=== PATIENT | male | born 1985 | race Caucasian/White ===

== ENCOUNTER 2021-05-15 08:19 | Emergency (ER) | payer OTHER ==
[~2021-05-15] VITALS: Ht 172.7 cm; Wt 100.7 kg
[~2021-05-15 08:19] MED LIST: ENTOCORT EC3 M1 PO; FLUCONAZOLE100 MG PO; PREDNISONE20 MG PO; TRAMADOL HCL200 MG PO; XANAX0.25 MG PO; Z.0.ACIPHEX20 MG PO; Z.0.FLAGYL500 MG PO; Z.0.LEVAQUIN500 MG PO; Z.0.LEXAPRO20 MG PO; Z.0.PENTASA500 MG PO; Z.0.REGLAN5 MG PO
[2021-05-15] MEDS ORDERED: SODIUM CHLORIDE 0.9% 1000ML 1,000 ML IV STA (08:25)
[2021-05-15] MEDS ORDERED: ONDANSETRON HCL INJ 2MG/ML 2ML 2 MG/ML VIAL IV STA (08:25)
[2021-05-15] MEDS ORDERED: SODIUM CHLORIDE 0.9% 1000ML 1,000 ML ONE (08:37)
[2021-05-15 08:55] LABS: BASOPHILS # (AUTO) 0.1 (0.0-0.1); BASOPHILS % 0.7 % (0.0-1.0); EOSINOPHILS # (AUTO) 0.1 (0.0-0.4); EOSINOPHILS % 1.1 % (0.0-6.0); HEMATOCRIT 51.3 % (38.2-49.6); LYMPHOCYTES # (AUTO) 1.4 (1.0-3.2); LYMPHOCYTES % 13.5 % (18.0-39.1); MEAN CORPUSCULAR HEMOGLOBIN 28.8 pg (28-32); MEAN CORPUSCULAR HGB CONC 33.1 g/dL (31-35); MEAN CORPUSCULAR VOLUME 86.9 fL (81-99); MONOCYTES # (AUTO) 1.4 (0.2-0.8); MONOCYTES % 13.7 % (4.4-11.3); NEUTROPHILS # (AUTO) 7.1 (2.1-6.9); NEUTROPHILS % 69.9 % (38.7-80.0); PLATELET COUNT 265 x10e3/uL (140-360)
[2021-05-15 09:17] LABS: ALBUMIN/GLOBULIN RATIO 0.9 (0.8-2.0); ANION GAP 16.2 mmol/L (8-16); CALCIUM 9.2 mg/dL (8.4-10.2); CREATININE, SERUM 1.02 mg/dL (0.72-1.25); POTASSIUM 4.2 mmol/L (3.5-5.1)
[2021-05-15 09:23] LABS: CREATINE KINASE MB 0.8 ng/mL (0-5.0)
[2021-05-15 09:32] LABS: AMPHETAMINES SCREEN,URINE NEGATIVE (NEGATIVE); BENZODIAZEPINES SCREEN,URINE NEGATIVE (NEGATIVE); PHENCYCLIDINE SCREEN,URINE NEGATIVE (NEGATIVE)
[2021-05-15] MEDS ORDERED: KETOROLAC TROMETHAMINE 30 MG/ML VIAL IV STA (09:36)
[2021-05-15] MEDS ORDERED: IOPAMIDOL 370 MG/ML 200 ML INFUS..BTL INJ ONE (10:21)
[2021-05-15] MEDS ORDERED: SODIUM CHLORIDE 0.9% 50ML 50 ML ONE (10:21)
[2021-05-15] MEDS ORDERED: PREDNISONE20 MG PO (10:26)
[2021-05-15] MEDS ORDERED: ZOFRAN4 MG SL (10:28)
[2021-05-15] MEDS ORDERED: DICYCLOMINE HCL20 MG PO (10:28)
[2021-05-15 10:43] VITALS: BP 115/77
== END 2021-05-15 10:49 | disposition home or self-care (01) ==
LOC: ER 08:30
DX: R10.11 Right upper quadrant pain (principal); R11.2 Nausea with vomiting, unspecified; K63.89 Other specified diseases of intestine
CPT/HCPCS: 36415; 74177; 80053; 80307; 82550; 82553; 83690; 84484; 85025; 99284; J1885; J7030; Q9967